=== PATIENT | male | born 1935 | race Caucasian/White ===

== ENCOUNTER 2019-04-22 23:15 | Outpatient (CLI) | payer MEDICARE, OTHER | END 2019-04-22 23:16 | disposition short-term general hospital (02) | LOC: EMS 23:15 | PROVIDERS: ATTEND Surgery | DX: R10.31 Right lower quadrant pain (principal) | CPT/HCPCS: A0425; A0429 ==

== ENCOUNTER 2020-05-16 10:24 | Outpatient (CLI) | payer MEDICARE, OTHER | END 2020-05-16 10:25 | disposition home or self-care (01) | LOC: COV 10:24 | PROVIDERS: ATTEND Family Medicine | DX: Z20.822 Contact with and (suspected) exposure to COVID-19 (principal) ==

== ENCOUNTER 2020-09-18 14:55 | Outpatient (CLI) | payer MEDICARE, OTHER | END 2020-09-18 14:56 | disposition short-term general hospital (02) | LOC: EMS 14:55 | DX: R07.9 Chest pain, unspecified (principal) | CPT/HCPCS: A0425; A0429 ==

== ENCOUNTER 2020-12-20 17:03 | Outpatient (CLI) | payer MEDICARE, OTHER | END 2020-12-20 17:04 | disposition home or self-care (01) | LOC: COV 17:03 | PROVIDERS: ATTEND Family Medicine | DX: Z20.822 Contact with and (suspected) exposure to COVID-19 (principal) ==